=== PATIENT | male | born 1985 | race Two or more races ===

== ENCOUNTER 2019-10-21 06:36 | Emergency (ER) | payer OTHER ==
[~2019-10-21] VITALS: Ht 182.9 cm; Wt 169.6 kg
[2019-10-21 06:42] VITALS: Ht 182.9 cm; Wt 169.6 kg
[2019-10-21 08:05] VITALS: BP 124/78
== END 2019-10-21 08:05 | disposition home or self-care (01) ==
LOC: ED 06:36
DX: S49.92XA Unspecified injury of left shoulder and upper arm, initial encounter (principal); S00.81XA Abrasion of other part of head, initial encounter; V49.9XXA Car occupant (driver) (passenger) injured in unspecified traffic accident, initial encounter; Y93.I9 Activity, other involving external motion; Y92.413 State road as the place of occurrence of the external cause; Y99.8 Other external cause status
CPT/HCPCS: Q0092